=== PATIENT | female | born 1965 | race Caucasian/White ===

== ENCOUNTER 2020-03-13 08:00 | Outpatient (RCR) | payer OTHER, SELFPAY | END 2020-04-19 08:43 | disposition home or self-care (01) | LOC: HO.OT 08:00 | PROVIDERS: Visit Provider Orthopaedic Surgery | DX: S52.122D Displaced fracture of head of left radius, subsequent encounter for closed fracture with routine healing (principal) | CPT/HCPCS: 29105; 97018; 97110; 97140; 97165; 97760 ==

== ENCOUNTER → 2020-04-06 08:59 | Outpatient (BNVA) | payer OTHER, SELFPAY | PROVIDERS: PCP Internal Medicine; Referring Provider Internal Medicine; Visit Provider Orthopaedic Surgery | DX: Z76.89 Persons encountering health services in other specified circumstances (principal) ==

== ENCOUNTER 2020-04-09 10:02 | Outpatient (REF) | payer OTHER, SELFPAY | END 2020-04-09 10:03 | disposition home or self-care (01) | LOC: HO.LAB 10:02 | PROVIDERS: PCP Internal Medicine; Visit Provider Internal Medicine | DX: Z20.828 Contact with and (suspected) exposure to other viral communicable diseases (principal) | CPT/HCPCS: C9803; U0003 ==